=== PATIENT | female | born 1955 | race American Indian/Alaskan Native ===

== ENCOUNTER 2021-05-15 17:48 | Emergency (ER) | payer OTHER ==
--- NOTE | 2021-05-15 18:52 | RAD REPORT ---
EXAM DESCRIPTION: CT - Head Brain Wo Cont - 05/15/2021 6:46 pm CLINICAL HISTORY: DIZZINESS COMPARISON: No comparisons TECHNIQUE: All CT scans are performed using dose optimization technique as appropriate and may inclu de automated exposure control or mA/KV adjustment according to patient size. FINDINGS: No intracranial hemorrhage, hydrocephalus or extra-axial fluid collection.No areas of brai n edema or evidence of midline shift. The paranasal sinuses and mastoids are clear. The calvarium is intact. IMPRESSION: No acute intracranial abnormality.
[2021-05-15 19:41] LABS: ALT/SGPT 22 U/L (12-78); AST/SGOT 22 U/L (15-37); Albumin 4.1 g/dL (3.4-5.0); Alkaline Phosphatase 79 U/L (45-117); BUN Blood Urea Nitrogen 11 mg/dL (7-18); Bicarbonate 26 mmol/L (21-32); Bilirubin Direct 0.2 mg/dL (0-0.2); Bilirubin Total 0.7 mg/dL (0.2-1.0); Glucose Level 154 mg/dL (74-106); Magnesium 1.9 mg/dL (1.8-2.4); NT PRO-BNP 95 pg/mL (<125); Potassium 4.8 mmol/L (3.5-5.1); Protein, Total 7.8 g/dL (6.4-8.2); Sodium Level 133 mmol/L (136-145); Troponin (Emerg Dept Use Only) < 0.02 ng/mL (0.0-0.045)
[2021-05-15 19:42] LABS: Absolute Lymphocytes (CBC) 0.9 K/uL (0.7-4.9); Hematocrit 37.2 % (36.0-45.0); Lymphocytes % 6.6 % (15.3-44.8); MPV 7.9 fL (7.6-11.3); RBC Red Blood Cell Count 4.16 M/uL (3.86-4.86)
[2021-05-15 19:54] LABS: Protime INR 0.97
--- NOTE | 2021-05-15 19:59 | RAD REPORT ---
EXAM DESCRIPTION: RAD - Chest Single View - 05/15/2021 7:27 pm CLINICAL HISTORY: Dizziness COMPARISON: No comparisons FINDINGS: Lines: None. Lungs: No evidence of edema or pneumonia. Pleural: No significant pleural effusions or pneumothorax. Cardiac: Cardiomegaly which is mild. Bones: No acute fractures. Other: IMPRESSION: No acute cardiopulmonary disease.
[2021-05-15] MEDS ORDERED: MORPHINE 2 MG/ML SYR ONE ×2 (20:44→20:50)
[2021-05-15] MEDS ORDERED: ONDANSETRON 4 MG/2 ML VIAL ONE ×2 (20:44→20:50)
[2021-05-15 21:43] LABS: Blood Morphology Comment NOT SEEN (NOT SEEN); Platelet Estimate ADEQ; White Blood Cell Scan OK (OK)
[2021-05-15 23:27] LABS: Urine Bacteria <20 /HPF (<20); Urine RBC NONE SEEN /HPF (NONE SEEN)
--- NOTE | 2021-05-15 23:52 | ER ---
Nurse's Notes [facility] Name: Lorri Gamino Age: 65 yrs Sex: Female : 1955 Arrival Date: 05/15/2021 Time: 17:52 Bed 24 Private MD: Diagnosis: Strain of muscle, fascia and tendon of lower back;Dizziness and giddiness Presentation: 05/15 17:58 Chief complaint: Patient states: Pain on coccyx, lower abdomen, lower back. Pt stated, kg " She was walking and then felt dizzy and then just fell into a sitting position." She also stated that she vomited after eating lunch but is no longer nauseated. Chief complaint:. Coronavirus screen: Vaccine status: At this time, the client does not indicate any symptoms associated with coronavirus-19. Ebola Screen: Patient negative for fever greater than or equal to 101.5 degrees Fahrenheit, and additional compatible Ebola Virus Disease symptoms Patient denies exposure to infectious person. Patient denies travel to an Ebola-affected area in the 21 days before illness onset. No symptoms or risks identified at this time. Initial Sepsis Screen: Does the patient meet any 2 criteria? No. Patient's initial sepsis screen is negative. Does the patient have a suspected source of infection? No. Patient's initial sepsis screen is negative. Risk Assessment: Do you want to hurt yourself or someone else? Patient reports no desire to harm self or others. Onset of symptoms was May 15, 2021. 17:58 Method Of Arrival: Ambulatory kg 17:58 Acuity: RAVIN 4 kg 18:37 Acuity: RAVIN 3 iw Triage Assessment: 18:07 General: Appears in no apparent distress. Behavior is calm, cooperative, appropriate kg for age, quiet. Pain: Complains of pain in suprapubic area, right lower quadrant and left lower quadrant Pain does not radiate. Pain radiates to Low[place] back, Coccyx. Historical: - Allergies: 18:07 No Known Allergies; kg - Home Meds: 18:07 metformin 850 mg Oral tab 1 tab 2 times per day [Active]; atorvastatin 10 mg oral tab 1 kg tab once daily [Active]; ergocalciferol (vitamin D2) 1,250 mcg (50,000 unit) oral cap daily [Active]; - PMHx: 18:07 NIDDM; Hypercholesterolemia; Gastric reflux; kg - PSHx: 18:07 None; kg - Immunization history:: Adult Immunizations up to date, Client reports receiving the 2nd dose of the Covid vaccine, Date received: November 2020 [employer] Client reports receiving the 1st dose of the Covid vaccine, November 2020 [employer]. - Social history:: Smoking status: Patient denies any tobacco usage or history of. Screenin:13 Abuse screen: Denies threats or abuse. Denies injuries from another. Nutritional kg screening: No deficits noted. Tuberculosis screening: No symptoms or risk factors identified. Fall Risk None identified. Assessment: 18:41 Reassessment: Patient appears in no apparent distress at this time. Patient and/or aj2 family updated on plan of care and expected duration. Pain level reassessed. Patient is alert, oriented x 3, equal unlabored respirations, skin warm/dry/pink. General: Appears in no apparent distress. comfortable, slender, well groomed, Behavior is calm, cooperative, appropriate for age. Vital Signs: 17:58 BP 149 / 76; Pulse 70; Resp 16; Temp 97.2; Pulse Ox 95% on R/A; Weight 50 kg (R); kg Height 5 ft. 4 in. (162.56 cm); Pain 5/10; 18:34 BP 144 / 77; Pulse 64; Resp 18; Temp 98.7; Pulse Ox 98% ; aj2 20:33 BP 148 / 75; Pulse 88; Resp 18; Temp 98.4; Pulse Ox 99% ; wr 05/16 00:29 BP 139 / 78; Pulse 76; Resp 18; Temp 98.4; Pulse Ox 98% ; wr 05/15 17:58 Body Mass Index 18.92 (50.00 kg, 162.56 cm) kg ED Course: 05/15 17:52 Patient arrived in ED. mr 17:57 Liz Santo, RN is Primary Nurse. kg 18:07 Triage completed. kg 18:13 Patient has correct armband on for positive identification. kg 18:13 No provider procedures requiring assistance completed. kg 18:21 Constantino Maloney NP is PHCP. pm1 18:21 Fabricio Bustillos MD is Attending Physician. pm1 18:34 No apparent distress. Resting quietly. aj2 18:46 CT Head Brain wo Cont In Process Unspecified. EDMS 19:09 CBC with Diff Sent. aj2 19:09 Basic Metabolic Panel Sent. aj2 19:09 LFT's Sent. aj2 19:09 Magnesium Sent. aj2 19:09 NT PRO-BNP Sent. aj2 19:10 PT-INR Sent. aj2 19:10 Troponin (emerg Dept Use Only) Sent. aj2 19:11 NT PRO-BNP Sent. aj2 19:11 Basic Metabolic Panel Sent. aj2 19:11 CBC with Automated Diff Sent. aj2 19:11 Liver (Hepatic) Function Sent. aj2 19:11 Magnesium Sent. aj2 19:27 XRAY Chest (1 view) In Process Unspecified. EDMS 19:27 XRAY Sacrum And Coccyx In Process Unspecified. EDMS Administered Medications: 20:28 Drug: morphine 2 mg Route: IVP; Site: right forearm; lh3 20:28 Drug: Zofran (Ondansetron) 4 mg Route: IVP; Site: right forearm; 3 20:35 CANCELLED (Duplicate Order): morphine 2 mg IVP once; RASS on ADMIN: Combtv4, Very lh3 Agttd3, Agttd2, Rstlss1, AlertClm0, Drwsy-1, Lt Sdtn-2, Mod Sdtn-3, Dp Sdtn-4, UnArsble-5 20:35 CANCELLED (Duplicate Order): Zofran (Ondansetron) 4 mg IVP once; over 2 minutes lh3 05/16 00:05 Drug: Lidoderm Patch 5 % (700 mg/patch) 1 patches Route: Topical; Site: anterior chest wr wall; Outcome: 05/15 23:51 Discharge ordered by . pm1 05/16 00:30 Condition: stable wr 00:31 Discharge instructions given to patient, friend. wr 00:31 Discharged to home via wheelchair. wr 00:32 Patient left the ED. wr Signatures: Dispatcher [employer] ED Ariel Iza Oralia Mohamud RN RN iw Constantino Maloney, CARRIE SILO OPERATOR pm1 Liz Santo RN RN kg Hardee, Latisha, RN RN lh3 Khoa Bourgeois aj2 Tamy Freeman wr
--- NOTE | 2021-05-15 23:52 | EDPHYS ---
Physician Documentation [facility] Name: Lorri Gamino Age: 65 yrs Sex: Female : 1955 Arrival Date: 05/15/2021 Time: 17:52 Bed 24 Private MD: LY Physician Fabricio Bustillos HPI: 05/15 18:49 This 65 yrs old Other Female presents to ER via Ambulatory with complaints of Dizziness pm1 and low back pain. 18:49 The patient presents with dizziness. Onset: The symptoms/episode began/occurred today, pm1 at 13:00. Context: occurred at home, occurred while the patient was walking, just prior to the episode the patient experienced no apparent symptoms. Modifying factors: The symptoms are alleviated by nothing, the symptoms are aggravated by nothing. Associated signs and symptoms: Pertinent negatives: abdominal pain, chest pain, numbness, shortness of breath, tingling, vomiting. Severity of symptoms: in the emergency department the symptoms Dizziness resolved. Pain to tailbone area persists. The patient has not experienced similar symptoms in the past. The patient has not recently seen a physician. Patient was walking and experienced some dizziness so she crouched down. When she crouched down she experience pain to her tailbone area. Denies hitting the ground with her buttocks. Negative headache head injury neck pain LOC. Historical: - Allergies: 18:07 No Known Allergies; kg - Home Meds: 18:07 metformin 850 mg Oral tab 1 tab 2 times per day [Active]; atorvastatin 10 mg oral tab 1 kg tab once daily [Active]; ergocalciferol (vitamin D2) 1,250 mcg (50,000 unit) oral cap daily [Active]; - PMHx: 18:07 NIDDM; Hypercholesterolemia; Gastric reflux; kg - PSHx: 18:07 None; kg - Immunization history:: Adult Immunizations up to date, Client reports receiving the 2nd dose of the Covid vaccine, Date received: November 2020 [employer] Client reports receiving the 1st dose of the Covid vaccine, November 2020 [employer]. - Social history:: Smoking status: Patient denies any tobacco usage or history of. ROS: 18:49 Constitutional: Negative for fever, chills, and weight loss, Cardiovascular: Negative pm1 for chest pain, palpitations, and edema, Respiratory: Negative for shortness of breath, cough, wheezing, and pleuritic chest pain, Abdomen/GI: Negative for abdominal pain, nausea, vomiting, diarrhea, and constipation. 18:49 : Negative for injury, bleeding, discharge, and swelling, MS/Extremity: Negative for injury and deformity, Skin: Negative for injury, rash, and discoloration. 18:49 Back: Positive for Pain with sitting to tailbone area. 18:49 Neuro: Positive for dizziness, Negative for headache, numbness, tingling, weakness. Exam: 18:49 Constitutional: This is a well developed, well nourished patient who is awake, alert, pm1 and in no acute distress. Head/Face: Normocephalic, atraumatic. 18:49 Back: No spinal tenderness. No costovertebral tenderness. Full range of motion. Skin: Warm, dry with normal turgor. Normal color with no rashes, no lesions, and no evidence of cellulitis. MS/ Extremity: Pulses equal, no cyanosis. Neurovascular intact. Full, normal range of motion. 18:49 Eyes: Exam is negative for acute changes, Extraocular movements: no acute changes, Conjunctiva: normal, no injection. 18:49 ENT: Exam is negative for acute changes, Mouth: Lips: normal, moist, Oral mucosa: normal, pink and intact, moist. 18:49 Neck: Exam negative for acute changes, ROM/movement: is normal. 18:49 Chest/axilla: Inspection: normal, Palpation: is normal, no crepitus, no tenderness. 18:49 Cardiovascular: Exam negative for acute changes, Rate: normal, Rhythm: regular, Pulses: no pulse deficits are appreciated, Heart sounds: normal, Edema: is not appreciated. 18:49 Respiratory: Exam negative for acute changes, respiratory distress, shortness of breath, Breath sounds: are clear throughout. 18:49 Abdomen/GI: Inspection: abdomen appears normal, Palpation: abdomen is soft and non-tender, in all quadrants. 18:49 Neuro: Exam negative for acute changes, Orientation: is normal, Mentation: is normal, Motor: is normal, moves all fours. Vital Signs: 17:58 BP 149 / 76; Pulse 70; Resp 16; Temp 97.2; Pulse Ox 95% on R/A; Weight 50 kg (R); kg Height 5 ft. 4 in. (162.56 cm); Pain 5/10; 18:34 BP 144 / 77; Pulse 64; Resp 18; Temp 98.7; Pulse Ox 98% ; aj2 20:33 BP 148 / 75; Pulse 88; Resp 18; Temp 98.4; Pulse Ox 99% ; wr 05/16 00:29 BP 139 / 78; Pulse 76; Resp 18; Temp 98.4; Pulse Ox 98% ; wr 05/15 17:58 Body Mass Index 18.92 (50.00 kg, 162.56 cm) kg MDM: 05/15 18:30 Patient medically screened. pm1 23:49 Data reviewed: vital signs. Data interpreted: Pulse oximetry: on room air is 99 %. pm1 Interpretation: normal. Counseling: I had a detailed discussion with the patient and/or guardian regarding: the historical points, exam findings, and any diagnostic results supporting the discharge/admit diagnosis, lab results, radiology results, the need for outpatient follow up, to return to the emergency department if symptoms worsen or persist or if there are any questions or concerns that arise at home. 23:57 ED course: REGISTERED SALES ASSISTANT aware reviewed. pm1 05/15 18:31 Order name: Basic Metabolic Panel pm1 05/15 18:31 Order name: CBC with Diff pm1 05/15 18:31 Order name: LFT's pm05/15 18:31 Order name: Magnesium pm1 05/15 18:31 Order name: NT PRO-BNP pm1 05/15 18:31 Order name: PT-INR; Complete Time: 20:01 pm1 05/15 18:31 Order name: Troponin (emerg Dept Use Only); Complete Time: 20:01 pm1 05/15 18:31 Order name: Basic Metabolic Panel; Complete Time: 20:01 EDMS 05/15 18:31 Order name: CBC with Automated Diff; Complete Time: 22:36 EDKS 05/15 18:31 Order name: Liver (Hepatic) Function; Complete Time: 20:01 EDKS 05/15 18:31 Order name: Magnesium; Complete Time: 20:01 EDKS 05/15 18:31 Order name: NT PRO-BNP; Complete Time: 20:01 EDKS 05/15 21:38 Order name: Urine Microscopic Only; Complete Time: 23:40 pm1 05/15 18:31 Order name: CT Head Brain wo Cont; Complete Time: 18:59 pm1 05/15 18:31 Order name: XRAY Chest (1 view); Complete Time: 20:01 pm1 05/15 18:31 Order name: EKG; Complete Time: 18:32 pm1 05/15 18:31 Order name: Cardiac monitoring; Complete Time: 20:04 pm1 05/15 18:31 Order name: EKG - Nurse/Tech; Complete Time: 19:45 pm1 05/15 18:31 Order name: IV Saline Lock; Complete Time: 19:10 pm1 05/15 18:31 Order name: Labs collected and sent; Complete Time: 19:10 pm1 05/15 18:31 Order name: O2 Per Protocol; Complete Time: 19:10 pm1 05/15 18:31 Order name: O2 Sat Monitoring; Complete Time: 19:10 pm1 05/15 18:31 Order name: XRAY Sacrum And Coccyx pm1 05/15 21:43 Order name: CBC Smear Scan EDMS 05/15 21:38 Order name: Urine Dipstick-Ancillary (obtain specimen) pm1 Administered Medications: 20:28 Drug: morphine 2 mg Route: IVP; Site: right forearm; lh3 20:28 Drug: Zofran (Ondansetron) 4 mg Route: IVP; Site: right forearm; lh3 20:35 CANCELLED (Duplicate Order): morphine 2 mg IVP once; RASS on ADMIN: Combtv4, Very lh3 Agttd3, Agttd2, Rstlss1, AlertClm0, Drwsy-1, Lt Sdtn-2, Mod Sdtn-3, Dp Sdtn-4, UnArsble-5 20:35 CANCELLED (Duplicate Order): Zofran (Ondansetron) 4 mg IVP once; over 2 minutes lh3 05/16 00:05 Drug: Lidoderm Patch 5 % (700 mg/patch) 1 patches Route: Topical; Site: anterior chest wr wall; Disposition: 06:43 Co-signature as Attending Physician, Fabricio Bustillos MD I agree with the assessment and queta plan of care. Disposition Summary: 05/15/21 23:51 Discharge Ordered Location: Home pm1 Problem: new pm1 Symptoms: have improved pm1 Condition: Stable pm1 Diagnosis - Strain of muscle, fascia and tendon of lower back pm1 - Dizziness and giddiness pm1 Followup: pm1 - With: Emergency Department - When: As needed - Reason: Worsening of condition Followup: pm1 - With: Private Physician - When: 2 - 3 days - Reason: Recheck today's complaints, Continuance of care, Re-evaluation by your physician Discharge Instructions: - Discharge Summary Sheet pm1 - Acute Back Pain, Adult pm1 - Dizziness pm1 Forms: - Medication Reconciliation Form pm1 - Thank You Letter pm1 - Antibiotic Education pm1 - Prescription Opioid Use pm1 Prescriptions: - Lidoderm 5 % Topical adhesive patch,medicated - apply 1 patch by TRANSDERMAL route once daily As needed On for 12 hours and off pm1 for 12 hours in a 24 hour period; 10 patch; Refills: 0, Product Selection Permitted - Tramadol 50 mg Oral Tablet - take 1 tablet by ORAL route every 8 hours as needed; 12 tablet; Refills: 0, pm1 Product Selection Permitted Signatures: Dispatcher [employer] EDMS Fabricio Bustillos MD MD cha Marinas, Patrick, [employer] SERVICE RUNNER pm1 Liz Santo, RN RN kg Erin Nash RN RN 3 Tamy Freeman Corrections: (The following items were deleted from the chart) 05/15 20:35 20:23 morphine 2 mg IVP once; RASS on ADMIN: Combtv4, Very Agttd3, Agttd2, Rstlss1, lh3 AlertClm0, Drwsy-1, Lt Sdtn-2, Mod Sdtn-3, Dp Sdtn-4, UnArsble-5 ordered. pm1 20:35 20:23 Zofran (Ondansetron) 4 mg IVP once; over 2 minutes ordered. pm1 lh3 21:43 21:43 Manual Differential ordered. EDMS EDMS
[2021-05-16] MEDS ORDERED: LIDOCAINE 4% PATCH ONE (00:29)
[2021-05-16 00:41] VITALS: TEMP 98.4
[2021-05-16 00:42] VITALS: BP 139/78; O2SAT 98
--- NOTE | 2021-05-16 14:39 | EKG ---
Test Date: 2021-05-15 Test Time: 19:43:52 M1 Armor Crewman: [place] MEASUREMENT RESULTS: Intervals: Rate: 65 WI: 178 QRSD: 88 QT: 438 QTc: 455 [place]: P: 54 WI: 178 QRS: -31 T: 28 INTERPRETIVE STATEMENTS: Normal sinus rhythm Left axis deviation Abnormal ECG No previous ECG available for comparison Electronically Signed On 05-16-21 14:38:25 CDT by Errol Garcia
--- NOTE | 2021-05-18 11:27 | RAD REPORT ---
EXAM DESCRIPTION: RAD - Sacrum And Coccyx - 05/15/2021 7:27 pm CLINICAL HISTORY: PAIN COMPARISON: No comparisons FINDINGS: Cortical step-off at the level of S4 on the lateral view. This could represent acute fract ure. No other fractures are seen. IMPRESSION: Possible sacral fracture. This could be confirmed with cross-sectional imaging.
== END 2021-05-16 00:32 | disposition home or self-care (01) ==
LOC: ER 17:48
DX: S39.012A Strain of muscle, fascia and tendon of lower back, initial encounter (principal); E11.9 Type 2 diabetes mellitus without complications; E78.00 Pure hypercholesterolemia, unspecified
CPT/HCPCS: 93005; 85025; 80048; 36415; 83735; 85610; 80076; 81015; 84484; 83880; 70450; 71045; 72220; 96375; 96374; 99284; J2270; J2405